=== PATIENT | female | born 1980 | race Caucasian/White ===

== ENCOUNTER → 2019-03-21 13:39 | Outpatient (CLI) | payer OTHER, SELFPAY ==
--- NOTE | 2019-03-21 | DI.US.S_ITS ---
PROCEDURE: US EXTREMELY NONVASC UPPER RT INDICATIONS: SOFT TISSUE MASS RIGHT ARM TECHNIQUE: Real-time scanning was performed of the right upper extremity, with image documentation. COMPARISON: None. FINDINGS: Cephalad to the antecubital fossa, there is a echogenic 2.5 x 0.6 x 1.6 cm superficial mass, presumably a lipoma although technically nonspecific. No internal vascularity IMPRESSION: Presumed lipoma, superior to the antecubital fossa. Recommend clinical followup and management Dictated by: Darryl Uribe M.D. on 03/21/2019 at 17:00 Approved by: Darryl Uribe M.D. on 03/21/2019 at 17:01
== END ==
PROVIDERS: Visit Provider Student in an Organized Health Care Education/Training Program
DX: R22.31 Localized swelling, mass and lump, right upper limb (principal)
CPT/HCPCS: 76882

== ENCOUNTER → 2019-05-13 12:15 | Outpatient (CLI) | payer OTHER, SELFPAY ==
--- NOTE | 2019-05-13 | DI.US.S_ITS ---
PROCEDURE: US SOFT TISSUE HEAD AND NECK INDICATIONS: LYMPHADENOPATHY TECHNIQUE: Real-time scanning was performed of the neck region of interest, with image documentation. COMPARISON: None. FINDINGS: Scanning is performed of the area of clinical concern as demonstrated by the patient. The palpable abnormality within the right neck corresponds to normal appearing lymph node that measures 6 mm in short axis with a length of 13 mm. This is located anterior and lateral to the submandibular gland. IMPRESSION: A normal appearing lymph node can be seen at the site of clinical concern. Dictated by: Jf Ley M.D. on 05/13/2019 at 13:45 Approved by: Jf Ley M.D. on 05/13/2019 at 13:46
== END ==
PROVIDERS: PCP Physician Assistant; Visit Provider Physician Assistant
DX: R59.0 Localized enlarged lymph nodes (principal)
CPT/HCPCS: 76536

== ENCOUNTER → 2021-10-03 07:44 | Outpatient (CLI) | payer OTHER, SELFPAY ==
--- NOTE | 2021-10-03 07:45 | DI.US.S_ITS ---
PROCEDURE: US PELVIC COMPLETE INDICATIONS: HEAVY PERIOD WITH CLOTS AND SEVERE CRAMPS TECHNIQUE: Real-time scanning was performed of the pelvic organs, with image documentation. Additional endovaginal scanning was necessary due to incomplete visualization of the adnexal and endometrial structures by transabdominal scanning. COMPARISON: None. FINDINGS: Uterus: Uterus is anteverted and normal in size at 7 x 4.5 by approximately 6.2 cm. The endometrium measures 14 mm combined thickness. There are submucosal fibroids versus endometrial masses at demonstrate internal vascularity, a which are as follows: Left endometrium, 8 x 6 x 8 mm Right endometrium 20 x 17 x 17 mm Mid endometrium, 25 x 22 x 14 mm An additional intramural fibroid can be seen within the mid uterus posteriorly measuring 13 x 13 x 11 mm Ovaries: The right ovary measures 2.8 x 1.9 x 1.2 cm. The left ovary measures 3.5 x 0.9 x 1.8 cm and demonstrates a complex cyst that measures up to 2.6 cm. The ovaries otherwise have a normal sonographic appearance. No adnexal masses are seen. Other: A mild amount of free pelvic fluid is seen, which is considered to be within physiologic limits. IMPRESSION: Abnormal endometrium, with endometrial passes versus submucosal fibroids that measure up to 25 mm. Please consider further evaluation with sonohysterogram versus hysteroscopy. There is a complex cyst seen involving the left ovary, which may represent a hemorrhagic cyst. In a patient of this age, this is almost certainly benign. If it would be clinically appropriate, a followup pelvic ultrasound could be considered in 6 weeks to assure resolution/ improvement. We strive to produce accurate, complete, and clear reports of imaging services. To assist us in improving patient care, this report was composed using standard report templates and voice recognition software. Therefore, it may contain abnormal punctuation, insertions and/or omissions. Occasional wrong-word or sound-alike substitutions may occur. Though we review the report and make efforts to correct it, we do recommend that the report be read carefully in proper context to recognize any text inaccuracies. Dictated by: Jf Ley M.D. on 10/03/2021 at 9:12 Approved by: Jf Ley M.D. on 10/03/2021 at 9:17
== END ==
PROVIDERS: PCP Obstetrics & Gynecology; Referring Provider Obstetrics & Gynecology; Visit Provider Obstetrics & Gynecology
DX: N92.0 Excessive and frequent menstruation with regular cycle (principal); D25.1 Intramural leiomyoma of uterus; D25.0 Submucous leiomyoma of uterus; N83.292 Other ovarian cyst, left side
CPT/HCPCS: 76830; 76856

== ENCOUNTER → 2022-01-22 15:59 | Outpatient (CLI) | payer OTHER, SELFPAY ==
--- NOTE | 2022-01-22 16:01 | DI.MG.S_ITS ---
BILATERAL DIGITAL SCREENING MAMMOGRAM 3D/2D WITH CAD WITH AUGMENTATION: 01/22/2022 CLINICAL: Baseline. Patient presents for routine screening. S/P bilateral augmentation. No prior exams were available for comparison. The tissue of both breasts is heterogeneously dense. This may lower the sensitivity of mammography. Current study was also evaluated with a Computer Aided Detection (CAD) system. Bilateral breast implants are stable and intact. No significant masses, calcifications, or other findings are seen in either breast. IMPRESSION: NEGATIVE There is no mammographic evidence of malignancy. A 1 year screening mammogram is recommended. This exam was interpreted at Station ID: [id number]. NOTE: For mammograms, a report in lay terms will be sent to the patient. Approximately 15% of breast malignancies will not be visualized mammographically. In the management of a palpable breast mass, a negative mammogram must not discourage biopsy of a clinically suspicious lesion. Electronically Signed By: Jesse chaparro/rosa:01/23/2022 08:16:52 letter sent: Normal Exam ACR BI-RADS Category 1: Negative [id number]
== END ==
PROVIDERS: PCP Obstetrics & Gynecology; Referring Provider Obstetrics & Gynecology; Visit Provider Obstetrics & Gynecology
DX: Z12.31 Encounter for screening mammogram for malignant neoplasm of breast (principal); Z98.82 Breast implant status
CPT/HCPCS: 77063; 77067

== ENCOUNTER → 2022-07-18 14:12 | Outpatient (CLI) | payer OTHER, SELFPAY ==
--- NOTE | 2022-07-18 14:20 | DI.US.S_ITS ---
PROCEDURE: US PELVIC COMPLETE INDICATIONS: Fibroids TECHNIQUE: Real-time scanning was performed of the pelvic organs, with image documentation. Additional endovaginal scanning was necessary due to incomplete visualization of the adnexal and endometrial structures by transabdominal scanning. COMPARISON: [facility], , US PELVIC COMPLETE, 10/03/2021, 8:00. FINDINGS: Uterus: Uterus is anteverted and normal in size at 9.5 x 4.4 x 5.3 cm. The myometrium is heterogeneous, with 3 apparent mass is seen within the endometrial cavity, 2 with increased vascularity. The endometrium measures 24 mm combined thickness. Uterine fibroids are again seen: Left submucosal/endometrial, 0.6 x 0.5 x 0.5 cm, prior 0.8 x 0.6 x 0.6 cm Right submucosal/endometrial, 2 x 1.7 x 1.8 cm, prior 2 x 1.7 x 1.7 cm Right submucosal/endometrial, 1.9 x 1.3 x 1.5 cm, to prior 2.5 x 1.4 x 1.7 cm Mid posterior uterus, intramural, 1.2 x 0.7 x 0.8 cm Ovaries: The right ovary measures 2.4 x 1.4 x 2.7 cm, with a calculated ovarian volume of 4.7 cc. The left ovary measures 3.8 x 2.1 x 2.3 cm, with a calculated ovarian volume of 9.6 cc. The left ovary demonstrates a 2 x 1.4 x 1.6 cm complex region. No adnexal masses are seen. Normal appearing arterial waveforms are confirmed to each ovary. More than 12 follicles can be seen involving each ovary. Other: No pathologic free abdominal or pelvic fluid. IMPRESSION: Abnormal endometrial stripe, with fibroids versus mass is seen. Two of these demonstrate increased vascularity. Likely resolving hemorrhagic cyst seen of the left ovary. More than 12 follicles can be seen involving each ovary, which is consistent with polycystic ovarian syndrome. We strive to produce accurate, complete, and clear reports of imaging services. To assist us in improving patient care, this report was composed using standard report templates and voice recognition software. Therefore, it may contain abnormal punctuation, insertions and/or omissions. Occasional wrong-word or sound-alike substitutions may occur. Though we review the report and make efforts to correct it, we do recommend that the report be read carefully in proper context to recognize any text inaccuracies. Dictated by: Jf Ley M.D. on 07/18/2022 at 17:18 Approved by: Jf Ley M.D. on 07/18/2022 at 17:23
== END ==
PROVIDERS: PCP Physician Assistant; Referring Provider Obstetrics & Gynecology; Visit Provider Obstetrics & Gynecology
DX: D25.0 Submucous leiomyoma of uterus (principal); N92.0 Excessive and frequent menstruation with regular cycle
CPT/HCPCS: 76830; 76856

== ENCOUNTER → 2022-10-09 13:46 | Outpatient (CLI) | payer OTHER, SELFPAY ==
[2022-10-09 15:48] LABS: COVID19 -Nasal RAPID Negative (Negative)
== END ==
PROVIDERS: PCP Physician Assistant; Visit Provider Obstetrics & Gynecology
DX: Z01.812 Encounter for preprocedural laboratory examination (principal); Z20.822 Contact with and (suspected) exposure to COVID-19
CPT/HCPCS: 87635

== ENCOUNTER 2022-10-10 09:24 | Day surgery (SDC) | payer OTHER, SELFPAY ==
[2022-10-09 09:22] VITALS: BMI 20.8
[2022-10-10] VITALS (8 sets, daily range): BP systolic 95–118; BP diastolic 68–78; PULSE 64–83; RESP 9–18; TEMP 36.1–36.7; O2SAT 97–100; BMI 20.9
--- NOTE | 2022-10-10 | PATH_ITS ---
[facility] Accession Number: [id number] . 01 Material submitted: . body - SUBMUCOUS FIBROID FRAGMENTS . 01 Diagnosis: Submucous Fibroid Fragments, Excision: Fragments of benign smooth muscle tissue, consistent with leiomyomas, see microscopic description. Negative for significant atypia and malignancy. Early secretory phase endometrium present. Negative for hyperplasia, atypia, and malignancy. [facility] 10/14/2022 1405 Local . 01 Electronically signed: . Mary Dior MD, Pathologist NPI- [id number] . 01 Gross description: . The specimen is received in formalin, labeled with the patient's name, , and submucous fibroid fragments, and consists of multiple pale robison, rubbery soft tissue fragments aggregating to 3.7 x 2.8 x 0.4 cm. The specimen is filtered into biopsy bags and submitted entirely in cassettes A1-A2. ([id number]) /[facility] 10/11/2022 2001 Local . 01 Microscopic: . Histologic examination reveals fragments of smooth muscle tissue without areas of necrosis, without significant cytologic atypia or increased mitotic activity. These features support benign leiomyomas. . There is also associated early secretory phase endometrium, without evidence of atypia or malignancy. . 01 Pathologist provided ICD-10: D25.0, N92.0, N94.6 . 01 CPT . 516766 Specimen Comment: A courtesy copy of this report has been sent to [phone] Performed at: 01 [facility] [address] [place] [address] [address] [facility], [place], [place] [id number] MD Baldo Gary MD Phone: [phone]
[2022-10-10] MEDS: LACTATED RINGERS 1,000 ML 42 ML IV (10:02)
--- NOTE | 2022-10-10 10:32 | PM.PREOP ---
Pre-operative Note COVID-19 COVID-19 status: Negative Result date/Date tested (Pos, Neg/Pending): 10/09/22 Criteria for continued procedure: Non-surgical alternatives not available or appropriate per current SOC Interval Note History & Physical reviewed/Exam performed by Physician: Yes Changes to H&P: No
--- NOTE | 2022-10-10 11:08 | SUR.OPER ---
Lithotomy on padded OR bed, head on pillow, arms secured on padded arm boards at <90 degrees abduction. Legs secured in padded yellow fins stirrups.
[2022-10-10] MEDS: SILVER NITRATE STICK 2 EACH TOP (11:34)
--- NOTE | 2022-10-10 11:53 | PM.GYNOP.1 ---
Operative Date/Time/Diagnoses Date of procedure: 10/10/22 Time of procedure: 10:55 Pre-op diagnosis: Menorrhagia Submucous fibroid of the uterus Post-op diagnosis: other (SANTIAGO, endometrial polyps) Procedure & Clinicians Procedure: Procedures Operation Date: 10/10/22 10:45 Actual Procedure Side Surgeon p Hysteroscopic myomectomy p Dilation and Curettage of the uterus p Insertion of Mirena intrauterine device Santosh Mckeon MD Indications: Alexandra is a 41 yo LMP 09/12/2021 who presented originally 09/16/2021 to discuss her periods. While her menses remain regular or and occur every 28 days or so, the flow is now lasting as long as 3 weeks and is associated with bright red bleeding, passage of clots, and severe dysmenorrhea.? She denies any intermenstrual spotting, postcoital bleeding, or vasomotor symptoms/night sweats/insomnia or other menopausal symptoms.? TXA had been prescribed at her initial evaluation in September 2021 but the patient did not pickers material handlers the prescription and states that she does not particularly like to take medication.? Following her initial assessment, pelvic ultrasound was requested and performed on 10/03/2021 which shows: FINDINGS:? ?? Uterus:? Uterus is anteverted and normal in size at 7 x 4.5 by approximately 6.2 cm. ? The endometrium measures 14 mm combined thickness.? ? There are submucosal fibroids versus endometrial masses that demonstrate internal vascularity, a which are as follows: ? Left endometrium, 8 x 6 x 8 mm Right endometrium 20 x 17 x 17 mm Mid endometrium, 25 x 22 x 14 mm ? An additional intramural fibroid can be seen within the mid uterus posteriorly measuring 13 x 13 x 11 mm ? Ovaries:? The right ovary measures 2.8 x 1.9 x 1.2 cm. The left ovary measures 3.5 x 0.9 x 1.8 cm and demonstrates a complex cyst that measures up to 2.6 cm. The ovaries otherwise have a normal sonographic appearance.? No adnexal masses are seen. ? Other:? A mild amount of free pelvic fluid is seen, which is considered to be within physiologic limits.?? ? IMPRESSION:? Abnormal endometrium, with endometrial passes versus submucosal fibroids that measure up to 25 mm. ? Please consider further evaluation with sonohysterogram versus hysteroscopy. ? There is a complex cyst seen involving the left ovary, which may represent a hemorrhagic cyst. In a patient of this age, this is almost certainly benign. If it would be clinically appropriate, a followup pelvic ultrasound could be considered in 6 weeks to assure resolution/ improvement.? After discussion of all options, patient has opted to proceed with hysteroscopic myomectomy and insertion of a Mirena IUD.? She presents today for her scheduled surgery. Surgeon: Santosh Mckeon Anesthesia Type: General Operative Notes Findings: There is a single submucous myoma arising from the right ursula-lateral surface of the endometrial cavity and two smaller, benign appearing endometrial polyps which were removed during the course of the procedure. Closure Type: not applicable Specimen(s): endometrial curettings and other (Fragments, submucous fibroid) Estimated blood loss (mL): 50 Blood products transfused: none Procedure in detail: With the patient under satisfactory general anesthesia in the modified dorsal lithotomy position, the perineum, vagina, and lower abdomen were prepped and draped in the usual manner for hysteroscopy. A pre-surgical safety time-out was then taken in accordance with [facility] OR protocols. Dulac speculum was inserted in the vagina and the cervix easily visualized. The anterior lip of the cervix was grasped with a single-tooth tenaculum and sequentially dilated to 7 mm with Hegar dilators. Hysteroscopy was performed confirming the ultrasound findings and a resectoscope was introduced into the endometrial cavity using sorbitol as distention medium. Using a loop electrode with 80 w of cutting power the fibroid was resected down to its base and the polyps removed in a similar fashion. All tissue fragments were removed with Joaquin stone forceps and a curettage of the endometrial cavity was then performed. A Mirena IUD was then inserted in the usual manner and strings trimmed to 3 cm. The single-tooth tenaculum was then removed from the anterior lip of the cervix and the puncture sites rendered hemostatic with Allis clamps. Once complete hemostasis had been assured, the speculum was removed from the vagina and the procedure terminated. Patient was then awakened and transferred to the PACU for a period of observation and recovery having tolerated the procedure well. Complications: none Post-operative Condition: stable Disposition: PACU Plan for aftercare: Routine post hysteroscopic myomectomy care with follow-up plan for 2 weeks postop
== END 2022-10-10 12:46 | disposition home or self-care (01) ==
PROVIDERS: PCP Physician Assistant; Referring Provider Obstetrics & Gynecology; Visit Provider Obstetrics & Gynecology
PROC: 0UDB8ZZ Extraction of Endometrium, Via Natural or Artificial Opening Endoscopic (ICD-10-PCS; CPT 58558; principal; 2022-10-10 10:45)
DX: D25.0 Submucous leiomyoma of uterus (principal); Z30.430 Encounter for insertion of intrauterine contraceptive device; N92.0 Excessive and frequent menstruation with regular cycle; N84.0 Polyp of corpus uteri
CPT/HCPCS: 58561; 58300; 81025; J1100; J1885; J2250; J2405; J2704; J3010; J7298

== ENCOUNTER 2023-07-02 11:13 | Day surgery (SDC) | payer OTHER, SELFPAY ==
[2023-06-17 14:32] VITALS: BMI 21.3
[2023-07-02] VITALS (17 sets, daily range): BP systolic 85–121; BP diastolic 36–68; PULSE 58–79; RESP 8–20; TEMP 36.4–36.8; O2SAT 94–100; BMI 21.4
--- NOTE | 2023-07-02 | PATH_ITS ---
[facility] Accession Number: [id number] No. of containers..01 Tissue . 01 Material submitted: . uterus - uTERUS AND BILATERAL FALLOPIAN TUBES . 01 Diagnosis: Uterus and Bilateral Fallopian Tubes; Hysterectomy and Bilateral Salpingectomy: Uterus, weight 122 grams. Submucosal (2.5 cm) and intramural leiomyomas (0.5 and 0.6 cm) see comment. Negative for atypia and malignancy. Secretory phase endometrium without endometrial polyps, hyperplasia, atypia, and malignancy. Mild chronic cervicitis without dysplasia. Fallopian tubes: Benign bilateral fallopian tubes and paratubal cysts, negative for atypia and malignancy. [facility] 07/10/2023 1550 Local . 01 Comment: Examination of signs and displays sales representative sections from the leiomyomas reveals benign smooth muscle proliferation without significant cytologic atypia, increased mitotic activity, necrosis, or malignancy. The histologic findings support benign leiomyomas. . 01 Electronically signed: . Mary Dior MD, Pathologist NPI- [id number] . 01 Gross description: . The specimen is received in formalin labeled with the patient's name, , and uterus, bilateral fallopian tubes consists of an intact uterus (122 grams, 9.7 cm from superior to inferior, 6.1 cm from medial to lateral, and 5.1 cm from anterior to posterior) with attached cervix (3.4 x 3.4 cm), left fimbriated fallopian tube (6.7 x 0.8 cm), and right fimbriated fallopian tube (5.2 x 0.6 cm), with no additional adnexa. The ectocervix is pink-robison, smooth and glistening with a circular os measuring 0.5 cm in diameter. The anterior paracervical margin is inked blue while the posterior paracervical margin is inked black. The serosa is violaceous and smooth with no evidence of adhesion or hemorrhage identified. The endocervical canal has robison herringbone mucosa and measures 2.4 cm in length. The endometrial cavity measures 3.3 cm from cornu to cornu, and 5.5 cm in length. The endometrium is red-pink and velvety with a nodular exophytic lesion in the anterior surface measuring 2.5 x 2.4 x 1.1 cm. Sectioning reveals the nodule to have a well-circumscribed whorled cut surface, and the remaining endometrium averages 0.1 cm thick. The myometrium is pink-robison, trabecular, and measures up to 2.4 cm in maximum thickness with two additional well-circumscribed white whorled nodules ranging from 0.5 to 0.6 cm in greatest dimension located intramurally. No additional lesions are identified. . The left fallopian tube has a violaceous smooth serosa with multiple cystic structures measuring up to 0.6 cm in greatest dimension filled with clear serous fluid. Sectioning reveals an unremarkable stellate lumen. The right fallopian tube has violaceous smooth serosa with multiple cystic structures measuring up to 0.3 cm in greatest dimension filled with cloudy serous fluid. Sectioning reveals an unremarkable stellate lumen. . Installation Engineer sections are submitted as follows: A1: Anterior cervix. A2: Posterior cervix. A3: Anterior full thickness section with submucosal nodule. A4: Posterior full thickness section. A5: Additional intramural nodules. A6: Serosa. A7: Left fallopian tube to include one-half of bisected fimbriae and cross sections. A8: Right fallopian tube to include one-half of bisected fimbriae and cross sections. ([id number]) /MRV 07/03/2023 [facility]6 Local . 01 Pathologist provided ICD-10: N93.9, D25.0 . 01 CPT . 818431 Specimen Comment: A courtesy copy of this report has been sent to [phone] Performed at: [facility] [address], [place], [place] [id number] MD Baldo Gary MD Phone: [phone]
--- NOTE | 2023-07-02 12:31 | PM.PREOP ---
Pre-operative Note COVID-19 COVID-19 status: Not tested Criteria for continued procedure: Non-surgical alternatives not available or appropriate per current SOC Interval Note History & Physical reviewed/Exam performed by Physician: Yes Changes to H&P: No
[2023-07-02] MEDS: CEFAZOLIN 2 GM/100 ML PREMIX 100 ML IV (12:50)
--- NOTE | 2023-07-02 13:27 | SUR.OPER ---
Lithotomy on padded OR bed. Harvey Pad Positioner under torso. Head on pillow, arms padded and tucked at sides. Legs secured in padded yellow fins stirrups.
[2023-07-02] MEDS: BUPIVACAINE 0.5% W/ EPI (PF) 30 ML VIAL INJ (13:36)
[2023-07-02] MEDS: ROPIVACAINE 0.2% PF 2 MG/ML 10ML AMP 20 ML INJ (13:37)
[2023-07-02] MEDS: LACTATED RINGERS 1,000 ML 42 ML IV (14:10)
--- NOTE | 2023-07-02 14:50 | P.OP_ITS ---
Operative Date/Time/Diagnoses Date of procedure: 07/02/23 Time of procedure: 13:00 Pre-op diagnosis: Menorrhagia Uterine fibroids Post-op diagnosis: same Procedure & Clinicians Procedure: Procedures Operation Date: 07/02/23 12:15 Actual Procedure Side Surgeon p Total Laparoscopic Hysterectomy w. bilateral salpingectomy s Cystoscopy Santosh Mckeon MD Indications: Alexandra is a 43 yo A2, LMP 2-3 weeks ago who has a multiyear history of progressively severe menorrhagia associated with submucous myomata.? She underwent hysteroscopy with partial hysteroscopic resection of the submucous myomas on 10/10/2022 along with insertion of a Mirena IUD in hopes of complete menstrual suppression but unfortunately she continues to bleed approximately 2 weeks out of every month.? The bleeding is relatively light but it is persistent despite the presence of the Mirena now for over 6 months.? She is becoming extremely tired of the bleeding as it is wearing on her emotionally and interfering with her life in significant ways.? As a result she would like to have the IUD removed and explore other more definitive options for elimination of her abnormal uterine bleeding.? Patient's most recent ultrasound performed in July 2022 prior to her hysteroscopy showed: FINDINGS:? ?? Uterus:? Uterus is anteverted and normal in size at 9.5 x 4.4 x 5.3 cm. The myometrium is heterogeneous, with 3 apparent mass is seen within the endometrial cavity, 2 with increased vascularity. ? The endometrium measures 24 mm combined thickness.? ? Uterine fibroids are again seen: ? Left submucosal/endometrial, 0.6 x 0.5 x 0.5 cm, prior 0.8 x 0.6 x 0.6 cm Right submucosal/endometrial, 2 x 1.7 x 1.8 cm, prior 2 x 1.7 x 1.7 cm Right submucosal/endometrial, 1.9 x 1.3 x 1.5 cm, to prior 2.5 x 1.4 x 1.7 cm Mid posterior uterus, intramural, 1.2 x 0.7 x 0.8 cm ? Ovaries:? The right ovary measures 2.4 x 1.4 x 2.7 cm, with a calculated ovarian volume of 4.7 cc. ? The left ovary measures 3.8 x 2.1 x 2.3 cm, with a calculated ovarian volume of 9.6 cc.? The left ovary demonstrates a 2 x 1.4 x 1.6 cm complex region. ? No adnexal masses are seen. Normal appearing arterial waveforms are confirmed to each ovary.? More than 12 follicles can be seen involving each ovary.? ? ? Other:? No pathologic free abdominal or pelvic fluid. ? ? IMPRESSION:? Abnormal endometrial stripe, with fibroids versus mass is seen.? Two of these demonstrate increased vascularity. ? Likely resolving hemorrhagic cyst seen of the left ovary. ? More than 12 follicles can be seen involving each ovary, which is consistent with polycystic ovarian syndrome.? Patient's Paps have always been normal and her most recent Pap is current, perf ormed within the last 3 years, and was normal.? Endometrial sampling at the time of her hysteroscopy D&C showed only benign endometrium and resected fragments of submucous myomas. Unfortunately patient has failed conservative management for her abnormal uterine bleeding despite hysteroscopic resection of submucous myomas and placement of a Mirena IUD.? Discussed the option of endometrial ablation with the patient and although it is likely that her bleeding would be markedly reduced at a minimum, no guarantees that the ablation itself will end her vaginal bleeding can be provided.? We also discussed the possibility of total laparoscopic hysterectomy and bilateral salpingectomy with preservation of both ovaries.? Because this is a procedure which will result in definitive resolution of her abnormal bleeding, patient would like to proceed with hysterotomy as opposed to endometrial ablation.? She presents today for her scheduled total laparoscopic hysterectomy with bilateral salpingectomy. Surgeon: Santosh Mckeon Anesthesia Type: General Operative Notes Findings: The uterus is 8 weeks in size and somewhat globular. Both ovaries appear normal in all respects. The fallopian tubes also appeared normal. There are no abnormalities of either the anterior or posterior cul-de-sacs. The appendix could not be visualized but the upper abdomen is normal to laparoscopic inspection. Cystoscopy at the end case showed vigorous urine jets from both ureteral meati. Closure Type: primary Specimen(s): left tube, right tube and uterus Applied: catheter Estimated blood loss (mL): 50 Blood products transfused: none Procedure in detail: With the patient in modified dorsal lithotomy position preparations were made by prepping and draping the patient in usual manner for vaginal surgery and insertion of Candelario catheter. A pre-surgical time-out was then taken in accordance with Located Within [facility] Main OR policy. A bivalve speculum was then placed in the vagina and the cervix visualized. The anterior lip of the cervix was then grasped with a single-tooth tenaculum. The uterus was sounded to 9 cm, the endocervical canal dilated slightly, and a VCare uterine manipulator with a medium colpotomy cup was placed. The umbilicus was then infiltrated with 0.5% Marcaine with epinephrine. A 1 cm umbilical incision was made transversely and a Veress needle was used to insufflate the abdominal cavity with carbon dioxide. Once the abdomen was appropriately insufflated, a 5 mm trocar and sleeve were t hen placed through the umbilical incision. The scope was placed through the trocar and the initial assessment of the intra-abdominal contents carried out. A 2nd and 3rd 5 mm port was then placed 1st in the right mid quadrant from then the left mid quadrant by infiltration of the skin and subcutaneous tissues, a 1 cm transverse incision and insertion of the 5 mm bladeless port. Using a 3 puncture technique, the abdomen and pelvis were inspected laparoscopy and photographically documented. Uterus is mobilized with the VCare manipulator and attention turned to the left adnexa. The distal tube was then grasped and the fimbria varicose divided after coagulation with the PowerSeal device. The dissection was then carried out toward the cornua and the fallopian tube amputated. The tube was removed through a 5 mm port and dissection was then carried down using the PowerSeal device so as to divide the utero-ovarian ligament and the round ligament with blunt and sharp dissection of the broad down to the level of the uterine artery. The uterine artery was then skeletonized after development of a bladder flap, coagulated, and divided. Once hemostasis was assured on the left side attention was turned to the right and the tube, utero-ovarian ligament, round ligament, and broad ligament were dissected in a fashion exactly the same as it had been on the left. The right uterine artery was then visualized after skeletonization and coagulated and divided. The uterus was seen to concetta after coagulation of both your arteries and the cup was identified through the vaginal muscularis at its insertion with the body of the cervix. Circumferential excision of the vaginal cup was accomplished without difficulty using monopolar current and the uterus mobilized. The uterus was then removed through the vagina and the vaginal cuff closed [id number] with a series of 0 Vicryl [id number] stitches. Hemostasis was excellent, the abdomen was re-insufflated, and the pelvis inspected laparoscopically. The pelvis was inspected for any abnormality or bleeding, and the ureters were each seen to be peristalsing freely. Cystoscopy performed with a 70 degree cystoscope showed no mucosal defects and there were vigorous jets of urine coming from both ureters. With complete hemostasis assured, the pneumoperitoneum was vented and the ports removed. All of the 5 mm ports were then closed with 4-0 Monocryl on the skin using inverted interrupted sutures. Skin glue was placed and after the glue was dried, an appropriate dressing was applied. The case was then terminated, the patient awakened, and then transferred to PACU after having tolerated the procedure well. Complications: none Post-operative Condition: stable Disposition: PACU Plan for aftercare: Recovery in ambulatory surgery in discharge home later today if pain is under control and she is tolerating oral intake well.
[2023-07-02] MEDS: hydrOXYzine pamoate 25 MG CAPSULE PO (15:58)
[2023-07-02] MEDS: HYDROCODONE/ACET 5/325 TABLET 1 TAB PO (15:58)
[2023-07-02] MEDS: LACTATED RINGERS 1,000 ML 100 ML IV (16:53)
[2023-07-02] MEDS: ACETAMINOPHEN 325 MG TABLET 650 MG PO (17:15)
--- NOTE | 2023-07-02 17:47 | PC.NURSE ---
Patient arrived from PACU at 1608. Alert 0x4, lethargic but able to complete admission and physical assessment.VSS, afebrile on RA. Dressings to C/D/I. Candelario in place draining adequate clear, light yellow urine. Patient reports pain to low abdomen 4/10. She c/o nausea this evening when trying to eat dinner, and medicated with PRN zofran per request.
[2023-07-02] MEDS: DOCUSATE 100 MG CAPSULE 200 MG PO (20:37)
[2023-07-02] MEDS: OXYCODONE IR 5 MG TABLET PO (20:38)
[2023-07-02] MEDS: KETOROLAC 30 MG/ML VIAL IV (21:30)
[2023-07-03] MEDS: ACETAMINOPHEN 325 MG TABLET 650 MG PO ×2 (00:38→07:00)
[2023-07-03] MEDS: ONDANSETRON 4 MG/2 ML INJ IV (00:39)
[2023-07-03 01:05] LABS: Add Manual Diff / Slide Review NO; Basophils Absolute Auto 0 /uL (0-100); Basophils Percent Auto 0.1 % (0-2); Eosinophils Absolute Auto 0 /uL (0-450); Hematocrit 34.5 % (36-46); Lymphocytes Absolute Auto 400 /uL (1100-4500); Lymphocytes Percent Auto 6.6 % (25-40); Mean Corpuscular HGB Conc 34.7 % (30-36); Mean Corpuscular Hemoglobin 30.8 PG (26-34); Mean Corpuscular Volume 88.8 fL (80-100); Monocytes Absolute Auto 300 /uL (0-900); Monocytes Percent Auto 4.4 % (3-14); Neutrophils Absolute Auto 5900 /uL (1500-7000); Neutrophils Percent Auto 88.9 % (50-75); Platelet Count 197 X10^3/uL (150-400); Red Blood Cell Count 3.89 X10^6/uL (4.0-5.2); Red Cell Distribution Width 12.2 % (11.6-14.8); White Blood Cell Count 6.6 X10^3/uL (4.5-11.0)
[2023-07-03] MEDS: LACTATED RINGERS 1,000 ML 1000 ML IV (01:20)
[2023-07-03] MEDS: KETOROLAC 30 MG/ML VIAL IV ×2 (02:35→08:08)
[2023-07-03] MEDS: LACTATED RINGERS 1,000 ML 100 ML IV (02:44)
[2023-07-03 03:29] VITALS: BP 85/54; PULSE 72; RESP 16; TEMP 36.9; O2SAT 98
[2023-07-03 08:00] VITALS: BP 101/61; PULSE 63; RESP 16; TEMP 37.4; O2SAT 100
[2023-07-03] MEDS: DOCUSATE 100 MG CAPSULE 200 MG PO (08:08)
--- NOTE | 2023-07-03 10:01 | P.DS_ITS ---
History of Present Illness History of Present Illness Date Patient Seen: 07/03/23 Time Patient Seen: 10:01 Chief complaint: Total Lap Hysterectomy w/kavitha Salpingectomy *OPB* Narrative: Alexandra is a 43 yo A2, LMP 2-3 weeks ago who has a multiyear history of progressively severe menorrhagia associated with submucous myomata.? She underwent hysteroscopy with partial hysteroscopic resection of the submucous myomas on 10/10/2022 along with insertion of a Mirena IUD in hopes of complete menstrual suppression but unfortunately she continues to bleed approximately 2 weeks out of every month.? The bleeding is relatively light but it is persistent despite the presence of the Mirena now for over 6 months.? She is becoming extremely tired of the bleeding as it is wearing on her emotionally and interfering with her life in significant ways.? As a result she would like to have the IUD removed and explore other more definitive options for elimination of her abnormal uterine bleeding.? Patient's most recent ultrasound performed in July 2022 prior to her hysteroscopy showed: FINDINGS:? ?? Uterus:? Uterus is anteverted and normal in size at 9.5 x 4.4 x 5.3 cm. The myometrium is heterogeneous, with 3 apparent mass is seen within the endometrial cavity, 2 with increased vascularity. ? The endometrium measures 24 mm combined thickness.? ? Uterine fibroids are again seen: ? Left submucosal/endometrial, 0.6 x 0.5 x 0.5 cm, prior 0.8 x 0.6 x 0.6 cm Right submucosal/endometrial, 2 x 1.7 x 1.8 cm, prior 2 x 1.7 x 1.7 cm Right submucosal/endometrial, 1.9 x 1.3 x 1.5 cm, to prior 2.5 x 1.4 x 1.7 cm Mid posterior uterus, intramural, 1.2 x 0.7 x 0.8 cm ? Ovaries:? The right ovary measures 2.4 x 1.4 x 2.7 cm, with a calculated ovarian volume of 4.7 cc. ? The left ovary measures 3.8 x 2.1 x 2.3 cm, with a calculated ovarian volume of 9.6 cc.? The left ovary demonstrates a 2 x 1.4 x 1.6 cm complex region. ? No adnexal masses are seen. Normal appearing arterial waveforms are confirmed to each ovary.? More than 12 follicles can be seen involving each ovary.? ? ? Other:? No pathologic free abdominal or pelvic fluid. ? ? IMPRESSION:? Abnormal endometrial stripe, with fibroids versus mass is seen.? Two of these demonstrate increased vascularity. ? Likely resolving hemorrhagic cyst seen of the left ovary. ? More than 12 follicles can be seen involving each ovary, which is consistent with polycystic ovarian syndrome.? Patient's Paps have always been normal and her most recent Pap is current, performed within the last 3 years, and was normal.? Endometrial sampling at the time of her hysteroscopy D&C showed only benign endometrium and resected fragments of submucous myomas. Unfortunately patient has failed conservative management for her abnormal uterine bleeding despite hysteroscopic resection of submucous myomas and plac ement of a Mirena IUD.? Discussed the option of endometrial ablation with the patient and although it is likely that her bleeding would be markedly reduced at a minimum, no guarantees that the ablation itself will end her vaginal bleeding can be provided.? We also discussed the possibility of total laparoscopic hysterectomy and bilateral salpingectomy with preservation of both ovaries.? Because this is a procedure which will result in definitive resolution of her abnormal bleeding, patient would like to proceed with hysterotomy as opposed to endometrial ablation.? She presents for her scheduled total laparoscopic hysterectomy with bilateral salpingectomy. Discharge Providers Provider Date of admission: 07/02/2023 Discharge Date: 07/03/23 Primary care physician: Lisa Garcia PA-C Discharge provider: Santosh Mckeon MD Summary Hospital Course Discharge Diagnosis: Menorrhagia Uterine fibroids Hospital Course: On the afternoon of 07/02/2023 the patient underwent an uneventful total laparoscopic hysterectomy with bilateral salpingectomy. Details of the procedure well summarized on my operative note of that date. Following surgery the patient has done extremely well with prompt return of bowel and bladder fu nction, she is ambulating independently, tolerating regular diet, and her pain is well controlled with oral pain medications. She will be discharged at this time in an afebrile normotensive condition to home after counseling regarding precautionary symptoms, limitations activity, medications, and plans for follow- up which will be in 2 weeks. Medications at discharge will include resumption of all of her pre-surgical medications as well as oxycodone 5 mg every 6 hours as needed for pain, dispense 12 with no refills, and Cipro 500 mg p.o. b.i.d. for 5 days as antibiotic prophylaxis for UTI following catheterization. Status at Discharge Cognitive/behavioral status at discharge: oriented Functional status at discharge: independent ambulation Overall status at discharge: patient is progressing back to baseline Time Spent with Patient Time spent: Less than 30 minutes Exam Vital Signs (past 8 hours): - 07/03/23 03:29 07/03/23 08:00 Temperature 98.5 F 99.3 F Pulse Rate 72 63 Respiratory Rate 16 16 Blood Pressure 85/54 L 101/61 Pulse Oximetry 98 100 Oxygen Flow Rate 0 Oxygen Delivery Method Room Air Oxygen Flow Rate 0 Const General: cooperative and comfortable Nutritional Appearance: average body habitus Orientation: alert and oriented x3 HENMT Head: normal to inspection, atraumatic and abrasion Ears: hearing grossly normal bilaterally Face and sinus: face symmetric Eyes General: appearance normal, both eyes and all related structures Conjunctivae: conjunctivae normal Sclera: sclerae normal EOM: EOM intact bilaterally Neck Neck: normal visual inspection Resp Effort & Inspection: normal respiratory effort and able to speak in complete sentences Auscultation: clear to auscultation bilaterally Cardio Rate: regular rate Rhythm: regular rhythm Heart Sounds: S1 normal, S2 normal and no murmurs GI Inspection: normal to inspection and incision (Surgical dressings clean and dry) Palpation: soft, no hepatosplenomegaly and tender (Mild, diffuse postsurgical tenderness) External Female Exam: other (No significant bleeding noted) Extrem General: no calf tenderness Psych Appearance: grossly normal Mental Status: mental status grossly normal Speech and Movement: speech and movement normal Mood: congruent mood Affect: normal affect Attitude: cooperative Thought Process: normal Thought Content: normal Judgment: judgment good Objective Labs 07/03/23 00:50 Labs: Laboratory Results - last 24 hr 07/03/23 00:50 WBC 6.6 RBC 3.89 L Hgb 12.0 Hct 34.5 L MCV 88.8 MCH 30.8 MCHC 34.7 RDW 12.2 Plt Count 197 Neut % (Auto) 88.9 H Lymph % (Auto) 6.6 L [place] % (Auto) 4.4 Eos % (Auto) 0.0 L Baso % (Auto) 0.1 Neut # (Auto) 5900 Lymph # (Auto) 400 L [place] # (Auto) 300 Eos # (Auto) 0 Baso # (Auto) 0 PFSH Medical History (Updated 11/26/21 @ 14:36 by Santosh Mckeon MD) Abnormal Pap smear of cervix (~2003) ADD (attention deficit disorder) (~1999) Anxiety (~2009) Chicken pox (~1984) Human papilloma virus (~2003) Melanoma (~1999) Skin cancer (~1999) Vaginal delivery Family History (Updated 12/18/19 @ 19:39 by Rachel Prado) Father Skin cancer Mental health problem Mother Mental health problem Hyperlipidemia Sister Skin cancer Grandfather History of heart disease Grandfather Diabetes mellitus Social History household members: spouse and children Smoking Status: Never smoker alcohol intake: current Discharge Assessment & Plan Assessment and Plan Assessment: Menorrhagia Uterine fibroids Status post total laparoscopic hysterectomy with bilateral salpingectomy Plan of Treatment: Routine postoperative care with follow-up planned for 2 weeks postop Discharge Plan Discharge Plan Patient Disposition: Home Provider Discharge Comment: Please review the written instructions you received when you were discharged from the hospital. Your follow-up appointment is scheduled for 2 weeks after your surgery and we look forward to seeing you then. If however in the meanwhile you have any issues, concerns, or questions, please contact the office either by phone at [phone], or via the patient portal. Discharge orders & Medications Discharge Orders: Discharge (Order); Ordered 07/03/23 Ordered By: Santosh Mckeon Prescriptions: New oxycodone 5 mg Tablet 5 mg PO Q6H PRN (Reason: Mild or moderate pain) Qty: 12 0RF ciprofloxacin HCl [Cipro] 500 mg tablet 500 mg PO BID 5 Days Qty: 10 0RF Continued buspirone 10 mg PO BID dextroamphetamine-amphetamine [Adderall] 10 mg tablet 10 mg PO TID pantoprazole [Protonix] 40 mg Tablet,Delayed Release (Dr/Ec) 40 mg PO PRN PRN (Reason: Acid Reflux) Follow up/Referrals: Lisa Garcia PA-C [Primary Care Provider] - Santosh Mckeon MD [Physician] - Diet/Activity/Treatments Diet: Diet as Tolerated Activity: As tolerated Other treatments: [id number] Tylenol and/or ibuprofen they be used for additional pain relief Skin/Wound/Dressing Care Report to your healthcare provider any signs of infection, such as:: chills, fever, increased pain, unusual drainage and unusual redness Dressing: Dressing should be removed on the morning of 07/04/2023 Visit Report/Discharge Packet Instructions: DI for Hysterectomy, DI for Laparoscopy, DI for Prescription Opioid Use Stand Alone Forms: Surgery Discharge Print Language: Salvadorean Discharge Data Primary Care Provider: Lisa Garcia Attending Provider: Santosh Mckeon VTE Deep Vein Thrombosis/Pulmonary Embolism Present on Admission: No
--- NOTE | 2023-07-03 13:00 | PC.NURSE ---
Pt is A&OX4, VSS, afebrile on RA. She reports pain is controlled at 5/10 pain to lower abdomen. No bleeding to yue pad. Dressings to abdomen c/d/i . She has palma dc'd (Urine cx sent) and is able to void this a.m. MD at bedside clearing her for discharge with pain medications and antibiotics. She verbalizes understanding of site care, activity restrictions, medications, s/sx of complication and to notify provider of symptoms as well as need for follow up appointment. She is escorted by RN to private vehicle with parents this a.m. for discharge home at 1135 a.m.
== END 2023-07-03 11:35 | disposition home or self-care (01) ==
LOC: OR 11:14 → AC 11:15
PROVIDERS: PCP Physician Assistant; Referring Provider Obstetrics & Gynecology; Visit Provider Obstetrics & Gynecology
PROC: 0UT94ZZ Resection of Uterus, Percutaneous Endoscopic Approach (ICD-10-PCS; CPT 58571; principal; 2023-07-02 12:15)
DX: N92.0 Excessive and frequent menstruation with regular cycle (principal); D25.0 Submucous leiomyoma of uterus; D25.1 Intramural leiomyoma of uterus; N72 Inflammatory disease of cervix uteri; N83.8 Other noninflammatory disorders of ovary, fallopian tube and broad ligament
CPT/HCPCS: 58571; 36415; 85025; 87086; J0690; J1100; J1170; J1885; J2250; J2310; J2405; J2704; J2795; J3010; J3490